=== PATIENT | female | born 1990 | race African-American/Black ===

== ENCOUNTER 2018-11-17 07:13 | Emergency (ER) | payer OTHER ==
[~2018-11-17] VITALS: Ht 167.6 cm; Wt 99.6 kg
[2018-11-17 07:17] VITALS: Ht 167.6 cm; Wt 99.6 kg
[2018-11-17] MEDS ORDERED: ACET500C5 PO (10:27)
[2018-11-17] MEDS ORDERED: BENZ-6 PO (10:27)
[2018-11-17] MEDS ORDERED: AZIT250T PO (10:27)
[2018-11-17] MEDS ORDERED: ALBU18HF INHALATION (10:27)
[2018-11-17 11:10] VITALS: BP 133/90; PULSE 87; RESP 18
--- NOTE | 2018-11-17 11:19 | ERD ---
ER Documentation Chief Complaint Chief Complaint FEVER , COUGH , CHEST CONGESTION , B/L EAR PAIN X 1 WEEK HPI 27-year-old female patient with no significant past medical history presents to ED complaining of fever, cough, sore throat, chest congestion, bilateral ear pain that started intermittently for 1 week. Reports that her cough is dry. Reports she has chest congestion and pain that is worsened with cough. She reports that she is been trying to take NyQuil [id number] without any relief of her symptoms. Denies any nausea, vomiting, diarrhea, abdominal pain, constipation, wheezing, neck stiffness. ROS All systems reviewed and are negative except as per history of present illness. Medications Home Meds Active Scripts Albuterol Sulfate* (Ventolin HFA*) 18 Gm Hfa.aer.ad, 2 PUFF INHALATION Q4H, #1 INHALER Prov:MONTSERRAT ALICEA PA-C 11/17/18 Azithromycin* (Zithromax*) 250 Mg Tablet, 250 MG PO .ZPACK DIRECTED, #6 TAB TAKE 500 MG (2 TABS) THE FIRST DAY THEN 250 MG (1 TAB) DAYS 2-5 Prov:MONTSERRAT ALICEA PA-C 11/17/18 Acetaminophen* (Tylophen*) 500 Mg Capsule, 1 CAP PO Q6H PRN for PAIN AND OR PRISCILA VATED TEMP, #20 CAP Prov:MONTSERRAT ALICEA PA-C 11/17/18 Benzonatate* (Tessalon Perle*) 100 Mg Capsule, 100 MG PO Q8H PRN for COUGH, #20 CAP Prov:MONTSERRAT ALICEA PA-C 11/17/18 Allergies Allergies: Coded Allergies: No Known Allergy (Unverified , 11/17/18) PMhx/Soc Medical and Surgical Hx: pt denies Medical Hx, pt denies Surgical Hx Hx Alcohol Use: No Hx Substance Use: No Hx Tobacco Use: No Smoking Status: Never smoker FmHx Family History: No diabetes, No coronary disease Physical Exam Vitals Vital Signs Date Temp Pulse Resp B/P (MAP) Pulse Ox O2 O2 Flow FiO2 Time Delivery Rate 11/17/18 99.1 90 18 132/88 97 07:17 (103) Physical Exam Const: Oqa-ddd-godoykylp, well-nourished. In no acute distress. Head: Atraumatic, normocephalic Eyes: Normal Conjunctiva without injection. No purulent discharge. PERRL. EOMI ENT: Normal external ear. Ear canal without erythema. Tympanic membrane pearly pyle without effusion or bulging. Nasal canal clear with normal turbinates. Moist oropharynx without tonsillar exudates. Non-erythematous pharynx. Uvula midline. No drooling. No trismus. Neck: Full range of motion. No meningismus. No cervical lymphadenopathy. Resp: Clear to auscultation bilaterally. No wheezing, rhonchi, rales, or crackles. No accessory muscle use. No retractions. Cardio: Regular rate and rhythm. No murmurs, rubs or gallops. Abd: Soft, non tender, non distended. Normal bowel sounds. No palpable masses. No rebound tenderness. No guarding. Skin: No petechiae or rashes Back: No midline tenderness. No CVA tenderness. Ext: No cyanosis, or edema. Neur: Awake and alert. Psych: Normal Mood and Affect Results 24 hrs Laboratory Tests Test 11/17/18 08:37 POC Beta HCG, Qualitative NEGATIVE Procedures/MDM 27-year-old female patient with no significant past medical history presents to ED with bilateral ear pain that started 1 week ago. Patient is afebrile and nontoxic-appearing. Patient's blood pressure is 132/88. Blood Pressure Assessment: Patient's blood pressure was elevated (>120/80) but appears stable without evidence of hypertension emergency or urgency. The patient was counseled about the risks of hypertension and urged to pursue outpatient monitoring and therapy within a week with their primary care physician. A chest x-ray was ordered to further evaluate patient. IMPRESSION: Unremarkable portable chest. This patient presents to the ED with symptoms consistent with a viral viral syndrome. Patient however also may have a bronchitis, therefore will be treated for possible bacterial etiology. Patient also has likely chest wall pain due to her cough. Low suspicion patient's physical exam include lungs which were clear to auscultation and a normal pulse oximetry. There is a low suspicion for pneumonia, pneumothorax, mononucleosis, pulmonary embolism, epiglottitis, otitis media, otitis externa, viral/strep pharyngitis, sinusitis, myocarditis, pericarditis, endocarditis, peritonsillar abscess, mastoiditis, retropharyngeal abscess, meningitis, sepsis, acute abdomen or other emergent conditions. Fluids, rest, and symptomatic treatment are recommended for the management of patient's symptoms. Discharge: Cough Discharge medications: Ventolin, Zithromax, Tylenol, Tessalon Perle Follow up with primary care physician in 1-2 days. Instructed patient to return to the ED sooner for any worsening symptoms. Patient's questions were answered. Patient is hemodynamically stable. Patient understood and agreed with discharge plan. Patient discharged stable. Disclaimer: Inadvertent spelling and grammatical errors are likely due to EHR/dictation software use and do not reflect on the overall quality of patient care. Also, please note that the electronic time recorded on this note does not necessarily reflect the actual time of the patient encounter. Departure Diagnosis: Primary Impression: Cough Condition: Stable Patient Instructions: Bronchitis, Antiobiotic Treatment (Adult) Referrals: [facility] YOU HAVE RECEIVED A MEDICAL SCREENING EXAM AND THE RESULTS INDICATE THAT YOU DO NOT HAVE A CONDITION THAT REQUIRES URGENT TREATMENT IN THE EMERGENCY DEPARTMENT. FURTHER EVALUATION AND TREATMENT OF YOUR CONDITION CAN WAIT UNTIL YOU ARE SEEN IN YOUR DOCTORS OFFICE WITHIN THE NEXT 1-2 DAYS. IT IS YOUR RESPONSIBILITY TO MAKE AN APPOINTMENT FOR [facility] CARE. IF YOU HAVE A PRIMARY DOCTOR --you should call your primary doctor and schedule an appointment IF YOU DO NOT HAVE A PRIMARY DOCTOR YOU CAN CALL OUR PHYSICIAN REFERRAL HOTLINE AT IF YOU CAN NOT AFFORD TO SEE A PHYSICIAN YOU CAN CHOSE FROM THE FOLLOWING [facility] [address] [facility]. [facility] [address] [facility]. [facility] [address] [facility]. [facility] [address] [facility]. [facility] [address] [facility]. [facility]. [address] [facility]. [facility] YOU HAVE RECEIVED A MEDICAL SCREENING EXAM AND THE RESULTS INDICATE THAT YOU DO NOT HAVE A CONDITION THAT REQUIRES URGENT TREATMENT IN THE EMERGENCY DEPARTMENT. FURTHER EVALUATION AND TREATMENT OF YOUR CONDITION CAN WAIT UNTIL YOU ARE SEEN IN YOUR DOCTORS OFFICE WITHIN THE NEXT 1-2 DAYS. IT IS YOUR RESPONSIBILITY TO MAKE AN APPOINTMENT FOR [facility]-UP CARE. IF YOU HAVE A PRIMARY DOCTOR --you should call your primary doctor and schedule and appointment IF YOU DO NOT HAVE A PRIMARY DOCTOR YOU CAN CALL OUR PHYSICIAN REFERRAL HOTLINE AT . IF YOU CAN NOT AFFORD TO SEE A PHYSICIAN YOU CAN CHOSE FROM THE FOLLOWING [facility] INSTITUTIONS: [facility] [address] [place] [address] [facility] [address] [place] [address] [facility] + [facility] [address] [place] [address] [facility] URGENT CARE/SPECIALTIES Additional Instructions: Call your primary care doctor TOMORROW for an appointment during the next 2-3 days.See the doctor sooner or return here if your condition worsens before your appointment time. MONTSERRAT ALICEA PA-C Nov 17, 2018 11:19
== END 2018-11-17 11:10 | disposition home or self-care (01) ==
LOC: FTE 07:13
DX: R05 Cough (principal)
CPT/HCPCS: 71045; 81025